=== PATIENT | female | born 1975 | race Caucasian/White ===

== ENCOUNTER 2020-03-17 06:25 | Day surgery (SDC) | payer OTHER, SELFPAY ==
[2020-03-13 15:22] VITALS: BMI 34.7
[2020-03-17] VITALS (10 sets, daily range): BP systolic 100–135; BP diastolic 54–79; PULSE 61–106; RESP 16–20; TEMP 36.4–36.6; O2SAT 94–100
[2020-03-17 06:56] LABS: OR HCG Qualitative Urine Negative (Negative)
[2020-03-17] MEDS: sodium chloride 0.9% 1,000 ML 30 ML IV (07:06)
--- NOTE | 2020-03-17 07:06 | ANES.PREANE2 ---
Pre-Anesthetic Assessment Pre-Anesthetic Assessment: Height/Weight: Height 1.57 m Weight 86.183 kg Temp Pulse Resp BP Pulse Ox 97.5 F L 76 16 135/69 99 03/17/20 06:47 03/17/20 06:47 03/17/20 06:47 03/17/20 06:47 03/17/20 06:47 Preop Diagnosis: Cholelithiasis Proposed Procedure: Operation Date: 03/17/20 08:00 Proposed Procedures p [place] [address] K80.20(Not Applicable) - Hector Corcoran MD Familial anesthetic complications: None Was Beta Rosanna taken within 24 hours: N/A Last intake: Intake Last Liquid Date 03/16/20 Last Liquid Time 23:45 Last Solid Date 03/16/20 Last Solid Time 21:00 Social: Social History: Tobacco and No alcohol Exam: Pre-Anes Outpt Exam: alert, oriented x 3, clear to auscultation bilaterally and regular rate & rhythm Airway: Cervical ROM: WNL MP: 2 Dentition: Full Musc/skel: Musc/skel: Fibromyalgia and RA Neuropsych: Neuropsych: None reported Anesthetic Plan: ASA status: 2 Anesthesia: General Risk of > 500 ml blood loss (7ml/kg in children): No PFSH Anesthesia PFSH: Medical History (Updated 03/11/20 @ 16:11 by Hector Corcoran MD) Breast implant status Depression with anxiety Fibromyalgia Rheumatoid arthritis Surgical History History of Social History Smoking and tobacco status: current some day smoker cigarettes Packs smoked per day: 0.5 Alcohol intake: never Data Anesthesia Other Labs: Laboratory Results - last 48 hr 03/17/20 06:55 Urine HCG, Qual Negative Cardiac Studies: No Data to Display
--- NOTE | 2020-03-17 07:09 | P.ANESASSM_ITS ---
Pre-Anesthetic Assessment Pre-Anesthetic Assessment: Height/Weight: Height 1.57 m Weight 86.183 kg Temp Pulse Resp BP Pulse Ox 97.5 F L 76 16 135/69 99 03/17/20 06:47 03/17/20 06:47 03/17/20 06:47 03/17/20 06:47 03/17/20 06:47 Preop Diagnosis: Cholelithiasis Proposed Procedure: Operation Date: 03/17/20 08:00 Proposed Procedures p Laparoscopic Cholecyst[place] 36937 K80.20(Not Applicable) - Hector Corcoran MD Was Beta Rosanna taken within 24 hours: N/A Last intake: Intake Last Liquid Date 03/16/20 Last Liquid Time 23:45 Last Solid Date 03/16/20 Last Solid Time 21:00 Exam: Pre-Anes Outpt Exam: alert, oriented x 3, clear to auscultation bilate rally and regular rate & rhythm Airway: Submandibular: WNL Cervical ROM: WNL MP: 2 Dentition: Full History/ROS: No significant history except as noted and No significant complaints Pulmonary: Pulmonary: None reported CV/HEM: CV/HEM: None reported : : None reported Hepatic: Hepatic: None reported GI: GI: GERD Comments: Controlled Musc/skel: Musc/skel: Fibromyalgia and RA Neuropsych: Neuropsych: None reported Anesthetic Plan: ASA status: 2 Anesthesia: Anesthesia Evaluation and General Risk of > 500 ml blood loss (7ml/kg in children): No Meds/Allergies Current Medications: Current Medications Generic Name Dose Route Start Last Admin Trade Name Freq PRN Reason Stop Dose Admin Sodium Chloride 1,000 mls @ 30 ml s/hr 03/17/20 06:30 03/17/20 07:06 Sodium Chloride 0.9% IV 30 mls/hr .Q24H INGRID Administration PFSH Anesthesia PFSH: Medical History (Updated 03/11/20 @ 16:11 by Hector Corcoran MD) Breast implant status Depression with anxiety Fibromyalgia Rheumatoid arthritis Surgical History History of Social History Smoking and tobacco status: current some day smoker cigarettes Packs smoked per day: 0.5 Alcohol intake: never Data Anesthesia Other Labs: Laboratory Results - last 48 hr 03/17/20 06:55 Urine HCG, Qual Negative Cardiac Studies: No Data to Display
--- NOTE | 2020-03-17 07:47 | W.PM.OPSUD ---
Surgery/Procedure H&P Update DATE OF PROCEDURE: March 17, 2020 DATE H&P PERFORMED: 03/11/20 H&P UPDATE INFORMATION: I have reviewed H&P completed within last 30 days, I have examined patient prior to procedure and No changes to prior documentation PREOP DIAGNOSIS: Cholelithiasis PLANNED PROCEDURE: Operation Date: 03/17/20 08:00 Proposed Procedures p Laparoscopic [place] [id number] K80.20(Not Applicable) - Hector Corcoran MD
[2020-03-17] MEDS: meperidine 50 mg/mL INJ 12.5 MG IVP (09:09)
--- NOTE | 2020-03-17 09:17 | SUR.PHASEI ---
0908 PT ON RA AWAKES TO VOICE PT SHIVERING STILL WARM BLANKETS TO PT , PT NOW COMPLAINS OF PAIN TO ABD PT MOANS AND IS TEARFUL WHILE SHIVERING SEE MED GIVEN
[2020-03-17] MEDS: HYDROcodone-acetaminophen 5-325 mg Tablet 1 TAB PO (09:42)
--- NOTE | 2020-03-17 10:29 | PM.OP ---
Operative Report Date of procedure: March 17, 2020 Pre-op Diagnosis: Cholelithiasis Post-op diagnosis: same Procedure Done: Laparoscopic cholecystectomy Specimens removed/disposition: Gallbladder Surgeon: Hector Corcoran Anesthesia: General Estimated blood loss (mL): 10 Condition: stable Disposition: PACU Procedure: The patient was taken to the operating room and was intubated under general anesthesia. After the antibiotic had been administered, the abdomen was prepped and draped in a sterile manner. Using a #15 blade, a 1 centimeter infraumbilical curvilinear incision was made and using an open Stephanie technique the peritoneal cavity was entered. A 10 millimeter port was placed and 15 millimeters of pneumoperitoneum was created. A 10 millimeter, 30 degrees scope was then introduced. Three 5 millimeter ports were placed in the epigastric, midclavicular and the anterior axillary line two fingerbreadths below the costal margin on the right side under the direct visualization. Ratcheted forceps were introduced into the lateral most port and was used to retract the fundus of the gallbladder cephalad and using forceps the infundibulum of the gallbladder was retracted laterally. Using L-hook cautery the peritoneum overlying the Calot's triangle was opened medially and laterally until the cystic duct and the cystic artery were skeletonized. Dissection was carried along the body of the gallbladder and after ensuring critical view of safety, 4 clips applied on the cystic duct and 3 clips applied on the cystic artery and cut leaving, 3 clips on the remaining portion of the duct and 2 clips on the remaining portion of the artery. The rest of the gallbladder was dissected off the liver using L-hook cautery. There was no bleeding or bile leaking noted from the gallbladder fossa and the clips appeared to be in place. An EndoCatch bag was introduced to remove the gallbladder. All the ports were removed under direct visualization and there was no bleeding noted from the port sites. The fascia of the umbilicus was closed using [id number] 0 Vicryl sutures and the subcutaneous tissue was approximated using 3-0 Vicryl sutures. The skin at all four ports were closed using 4-0 Monocryl and Dermabond. A total of 10 millimeters of 0.5% Marcaine was infiltrated around the port sites. The patient was stable throughout the procedure.
[2020-03-17] MEDS: ondansetron 2 mg/ML SDV 2 mL 4 MG IVP (10:40)
== END 2020-03-17 11:55 | disposition home or self-care (01) ==
PROVIDERS: PCP Family Medicine; Visit Provider Surgery
PROC: 0FT44ZZ Resection of Gallbladder, Percutaneous Endoscopic Approach (ICD-10-PCS; CPT 47562; principal; 2020-03-17 08:00)
DX: K80.10 Calculus of gallbladder with chronic cholecystitis without obstruction (principal); M79.7 Fibromyalgia; M06.9 Rheumatoid arthritis, unspecified; K21.9 Gastro-esophageal reflux disease without esophagitis; F17.210 Nicotine dependence, cigarettes, uncomplicated; F41.9 Anxiety disorder, unspecified; F32.9 Major depressive disorder, single episode, unspecified
CPT/HCPCS: 47562; 12345; 81025; 84703; 88304; 96374; J0131; J0690; J1100; J2175; J2405; J2704; J2710; J3010; J3490; J7030

== ENCOUNTER → 2020-04-03 12:55 | Outpatient (BNVA) | payer OTHER, SELFPAY | PROVIDERS: PCP Family Medicine; Visit Provider Internal Medicine Rheumatology | DX: Z79.899 Other long term (current) drug therapy (principal) | CPT/HCPCS: 80053; 85025; 85651; 86140 ==

== ENCOUNTER → 2020-04-10 15:46 | Outpatient (BNVA) | payer OTHER, SELFPAY | PROVIDERS: PCP Family Medicine; Visit Provider Internal Medicine | DX: M06.9 Rheumatoid arthritis, unspecified (principal); Z79.899 Other long term (current) drug therapy | CPT/HCPCS: 99213 ==

== ENCOUNTER → 2020-05-15 13:45 | Outpatient (BNVA) | payer OTHER, SELFPAY | PROVIDERS: PCP Family Medicine; Visit Provider Obstetrics & Gynecology | DX: Z30.017 Encounter for initial prescription of implantable subdermal contraceptive (principal); Z30.09 Encounter for other general counseling and advice on contraception; Z32.00 Encounter for pregnancy test, result unknown | CPT/HCPCS: 81025 ==

== ENCOUNTER → 2021-02-10 15:31 | Outpatient (BNVA) | payer OTHER, SELFPAY | PROVIDERS: PCP Family Medicine; Visit Provider Internal Medicine | DX: M06.9 Rheumatoid arthritis, unspecified (principal); M79.10 Myalgia, unspecified site; R21 Rash and other nonspecific skin eruption; R53.83 Other fatigue; Z87.891 Personal history of nicotine dependence | CPT/HCPCS: 99214 ==

== ENCOUNTER 2021-08-26 12:56 | Outpatient (CLI) | payer OTHER, SELFPAY ==
[2021-08-26 13:03] VITALS: BP 128/86; PULSE 79; RESP 17; TEMP 36.5; O2SAT 92
[2021-08-26 13:05] VITALS: BMI 36.6
[2021-08-26 13:36] VITALS: BP 120/78; PULSE 70; RESP 18; O2SAT 96
[2021-08-26 14:42] VITALS: BP 124/73; PULSE 73; RESP 17; TEMP 36.5; O2SAT 96
== END 2021-08-26 12:57 | disposition home or self-care (01) ==
LOC: OPS 12:59
PROVIDERS: PCP Family Medicine; Visit Provider Nurse Practitioner Family
DX: U07.1 COVID-19 (principal)
CPT/HCPCS: 96365

== ENCOUNTER → 2022-05-20 08:40 | Outpatient (BNVA) | payer OTHER, SELFPAY | PROVIDERS: PCP Family Medicine; Visit Provider Family Medicine | DX: M06.9 Rheumatoid arthritis, unspecified (principal); R73.03 Prediabetes; E66.9 Obesity, unspecified; R30.0 Dysuria; N39.0 Urinary tract infection, site not specified; Z76.89 Persons encountering health services in other specified circumstances; M05.79 Rheumatoid arthritis with rheumatoid factor of multiple sites without organ or systems involvement; E66.09 Other obesity due to excess calories; Z68.36 Body mass index [BMI] 36.0-36.9, adult; R21 Rash and other nonspecific skin eruption; Z79.899 Other long term (current) drug therapy | CPT/HCPCS: 80053; 80061; 81000; 83036; 84443; 85025; 85651; 86140; 87086 ==

== ENCOUNTER → 2022-10-25 15:03 | Outpatient (BNVA) | payer OTHER, SELFPAY | PROVIDERS: PCP Family Medicine; Visit Provider Internal Medicine | DX: M05.79 Rheumatoid arthritis with rheumatoid factor of multiple sites without organ or systems involvement (principal); L40.9 Psoriasis, unspecified; R21 Rash and other nonspecific skin eruption | CPT/HCPCS: 36415; 72202; 73120; 80053; 82550; 82784; 83516; 85025; 85651; 86140; 86160; 86162; 86200; 86235; 86255; 86376; 86704; 86803; 87340 ==

== ENCOUNTER 2024-05-10 14:49 | Outpatient (CLI) | payer OTHER, SELFPAY ==
[2024-05-10 15:24] LABS: Basophils % 0.3 %; Eosinophils # 0.3 10^3/uL (0.0-0.8); Eosinophils % 2.7 %; Hematocrit 44.4 % (36-47); Lymphocytes # 2.9 10^3/uL (0.8-4.8); Lymphocytes % 29.9 %; Mean Corpuscular HGB Conc 33.6 g/dL (30-55); Mean Corpuscular Hemoglobin 31.2 pg (27-33); Mean Corpuscular Volume 92.9 fl (85-98); Mean Platelet Volume 9.7 fL (7.4-10.4); Monocytes # 0.5 10^3/uL (0.2-0.9); Monocytes % 5.5 %; Neutrophils # 5.96 10^3/uL (1.8-7.7); Neutrophils % 61.4 %; Nucleated Red Blood Cells % 0 %; Platelet Count 269 10^3/cmm (157-399); Red Blood Count 4.78 10^6/uL (3.85-5.65); Red Cell Distribution Width 12.6 % (12.1-15.1)
[2024-05-10 16:47] LABS: Alanine Aminotransferase 23 U/L (0-33); Albumin Level 4.2 g/dL (3.5-5.2); Alkaline Phosphatase 79 U/L (35-105); Anion Gap 16.8 (5-19); Aspartate Amino Transferase 20 U/L (0-32); Blood Urea Nitrogen 14 mg/dL (6-20); Calcium 8.7 mg/dL (8.5-10.5); Carbon Dioxide 22 mmol/L (22-29); Chloride 102 mmol/L (98-107); Glomerular Filtration Rate 77.2 mL/min (90-130); Glucose 79 mg/dL (65-115); Osmolality Calculated 283 mOsm/kg (285-295); Potassium 3.8 mmol/L (3.5-5.1); Sodium 137 mmol/L (136-145); Total Bilirubin 0.4 mg/dL (0.15-1.2); Total Protein 7.2 g/dL (6.6-8.7)
[2024-05-12 15:24] LABS: Quantiferon Mitogen 5.84 IU/mL; Quantiferon Nil 0.01 IU/mL; Quantiferon Plus TB2 0.01 IU/mL; Quantiferon TB Gold NEGATIVE (NEGATIVE)
== END 2024-05-10 14:50 | disposition home or self-care (01) ==
PROVIDERS: PCP Family Medicine; Visit Provider Nurse Practitioner Family
DX: L73.2 Hidradenitis suppurativa (principal)
CPT/HCPCS: 36415; 80048; 80076; 85025; 86480